=== PATIENT | male | born 1985 | race Caucasian/White ===

== ENCOUNTER 2016-10-09 15:33 | Emergency (ER) | payer OTHER ==
[~2016-10-09] VITALS: Ht 188 cm; Wt 75.5 kg
[~2016-10-09 15:33] MED LIST: ADVIL200 MG PO; LOVENOX40 MG/0.4 SC; MEN'S MULTI-VI1 EACH PO; Vicodin,Lortab 5/500 PO
[2016-10-09 16:25] LABS: HEMATOCRIT 43.2 % (38.0-50.0); MCH 29.2 PG (29.0-34.0); MCHC 33.1 G/DL (30.0-36.0); MCV 88.3 FL (86-99); MEAN PLAT.VOLUME 10.5 uM^3 (9.0-12.4); PLATELET COUNT 293 K/uL (156-360); RBC DIS.WIDTH-SD 41.3 % (39-53); RED BLOOD COUNT 4.89 M/uL (4.00-5.50); WHITE BLOOD COUNT 8.4 K/uL (4.1-10.2)
[2016-10-09 16:36] LABS: CHLORIDE 109 mEq/L (99-109); POTASSIUM 4.2 mEq/L (3.7-5.4); SODIUM 143 mEq/L (136-147)
[2016-10-09 16:38] LABS: GLUCOSE 104 mg/dL (70-99)
[2016-10-09 16:39] LABS: ANION GAP 6 MEQ/L (2-14)
[2016-10-09 16:42] LABS: GFR ESTIMATE (CALCULATED) > 59 mL/min/
[2016-10-09 16:43] LABS: UREA NITROGEN (BUN) 9 mg/dL (9-23)
[2016-10-09 16:45] LABS: TROP-I INTERPRETATION NEGATIVE; TROPONIN-I < 0.01 ng/mL (0.0-0.30)
[2016-10-09 18:07] LABS: D-DIMER ELISA < 0.15 mg/L FEU (< 0.57)
[2016-10-09 18:52] LABS: TROP-I INTERPRETATION NEGATIVE; TROPONIN-I < 0.01 ng/mL (0.0-0.30)
[2016-10-09 19:28] VITALS: BP 128/70
== END 2016-10-09 19:30 | disposition home or self-care (01) ==
LOC: EME 15:33
PROVIDERS: Emergency Medicine
DX: R07.9 Chest pain, unspecified (principal)
CPT/HCPCS: 71020; 80048; 84484; 85027; 85379; 93005; 99281; 99284

== ENCOUNTER → 2018-04-29 | Emergency (ER) | payer OTHER ==
[~2018-04-29] VITALS: Ht 188 cm; Wt 70.4 kg
[~2018-04-29] MED LIST changes: +NORCO 10/3251 TABLET PO
[2018-04-29 18:22] VITALS: BP 134/84
== END | disposition home or self-care (01) ==
LOC: EME 14:17
DX: S42.212A Unspecified displaced fracture of surgical neck of left humerus, initial encounter for closed fracture (principal); V86.56XA Driver of dirt bike or motor/cross bike injured in nontraffic accident, initial encounter; Y93.55 Activity, bike riding; Y92.482 Bike path as the place of occurrence of the external cause; J45.909 Unspecified asthma, uncomplicated; Z88.5 Allergy status to narcotic agent
CPT/HCPCS: 73030; 73200; 99281; 99283; J1885